=== PATIENT | female | born 1950 | race Caucasian/White ===

== ENCOUNTER 2025-01-17 13:33 | Emergency (ER) | payer MEDICARE, BC ==
[2025-01-17 14:43] LABS: BASE EXCESS VENOUS 2.1 mm/L; BICARBONATE,VENOUS 25.2 mmol/L; O2 SATURATION VENOUS 44.5; OXYHEMOGLOBIN 43.0 %; PCO2 VENOUS 35.5 mm/Hg; PH,VENOUS 7.466 (7.350-7.450); TOTAL HEMOGLOBIN 11.8 g/dL (12.0-16.0)
[2025-01-17 14:47] LABS: PO2 VENOUS 25.5 mm/Hg
[2025-01-17 15:04] LABS: A/G RATIO 0.7 (1.2-2.2); ALANINE AMINOTRANSFERASE,ALT 14 U/L (12-78); ASPARTATE AMNIOTRANSFERASE,AST 15 U/L (15-37); BILIRUBIN TOTAL 0.3 mg/dL (0.2-1.0); BLOOD UREA NITROGEN,BUN 27 mg/dL (7-18); CARBON DIOXIDE,CO2 28 mmol/L (21-32); CHLORIDE,CL 102 mmol/L (100-108); CREATININE 1.1 mg/dL (0.6-1.0); EST CRCL DRUG DOSING (CG) 35.99 mL/min; ESTIMATED GFR 52 mL/min (>60); GLUCOSE RANDOM 96 mg/dL (74-106); POTASSIUM,K 4.8 mmol/L (3.6-5.2); PROTEIN TOTAL,TP 7.4 g/dL (6.4-8.2); SODIUM,NA 139 mmol/L (140-148)
[2025-01-17 15:11] LABS: APPEARANCE,URINE SLIGHTLY CLOUDY (CLEAR); GLUCOSE,URINE NEGATIVE (NEGATIVE); OCCULT BLOOD,URINE TRACE-LYSED (NEGATIVE)
[2025-01-17 15:27] LABS: SQUAMOUS EPITHELIAL CELLS,UR FEW /HPF; UROTHELIAL CELLS,URINE NOT SEEN /HPF
[2025-01-19 16:32] LABS: OSMOLALITY 290 mOsm/kg (280-303)
== END 2025-01-17 18:15 | disposition home or self-care (01) ==
LOC: JP.ED 13:33
DX: Z77.098 Contact with and (suspected) exposure to other hazardous, chiefly nonmedicinal, chemicals (principal); I10 Essential (primary) hypertension; E03.9 Hypothyroidism, unspecified; Z88.8 Allergy status to other drugs, medicaments and biological substances; Z79.890 Hormone replacement therapy; Z79.899 Other long term (current) drug therapy
CPT/HCPCS: 36415; 80053; 80307; 81001; 82803; 83930; 99283